=== PATIENT | male | born 1995 | race Caucasian/White ===

== ENCOUNTER 2018-01-30 10:37 | Emergency (ER) | payer OTHER ==
[2018-01-30] MEDS ORDERED: COLCHICINE 0.6 MG TABLET PO ONE (11:15)
--- NOTE | 2018-01-30 11:22 | ER Document Report ---
HPI - HPI Pain Level: 5 Notes: Patient is a 23-year-old male who presents with chief complaint of gout flareup. Patient reports this is been going on for approximately 5 days, states he was seen at the [facility] and placed on allopurinol. Patient reports that allopurinol typically does not work for his gout flareups. He states that this feels the same as his last flareup which was approximately 6 months ago. Patient denies any other symptoms. Past Medical History - General Information source: Patient - Social History Smoking Status: Never Smoker Smoking Education Provided: Yes Frequency of alcohol use: None Family History: Reviewed & Not Pertinent Musculoskeletal Medical History: Reports Hx Gout Surgical Hx: Negative - Immunizations Immunizations up to date: Yes Vertical Provider Document - CONSTITUTIONAL Notes: PHYSICAL EXAMINATION: GENERAL: Well-appearing, well-nourished and in no acute distress. HEAD: Atraumatic, normocephalic. EYES: Pupils equal round extraocular movements intact, conjunctiva are normal. ENT: Nares patent NECK: Normal range of motion LUNGS: No respiratory distress Musculoskeletal: Normal range of motion NEUROLOGICAL: Normal speech, normal gait. PSYCH: Normal mood, normal affect. SKIN: Erythema noted to great toe and dorsal side foot just superior to great toe. - INFECTION CONTROL TRAVEL OUTSIDE OF THE [place] IN LAST 30 DAYS: No Course - Re-evaluation Re-evalutation: History and physical is consistent with acute gout flareup. Patient would like to try colchicine. Patient will be given first dose here in prescription to be filled. Discharge - Discharge Clinical Impression: Gout attack Qualifiers: Gout site: unspecified site Gout etiology: unspecified cause Qualified Code(s) : M10.9 - Gout, unspecified Disposition: HOME, SELF-CARE Additional Instructions: Gout You have been diagnosed as having gout. Gout is a problem caused by an excess of uric acid, a natural chemical found in the body. The cause of this disease is unknown. Gout arthritis occurs when crystals of uric acid form in the joints. The big toe is the most common joint involved, but any joint can become affected. Persons with gout may also form uric acid kidney stones, resulting in flank pain and blood in the urine. Nodules of uric acid may form under the skin. The first step of treatment is to decrease the inflammation in the joint with antiinflammatory medication. Medication to lower the uric acid level in the blood may then be prescribed. This medication should be taken regularly, as any sudden change in dosage may provoke an attack of gout. Some foods, such as red meat, can provoke an attack in some gout sufferers. Call the doctor if new symptoms arise, or if you do not improve. Gout Diet Changing your diet can decrease the uric acid in your blood. High levels of uric acid cause gouty arthritis and uric acid kidney stones. If you have gout , you should avoid meats that are high in purine. Meat products to avoid include liver, kidneys, and brains. In general, poultry is better than red meats. Seafoods to avoid include anchovies, sardines, gonzalez, mackerel, and scallops. In addition to limiting purine-rich foods, people with gout should limit protein intake to 10-15% of total calories. Carbohydrate intake should be around 50% of total daily calories. Limit fat intake to 30% of total daily calories. Cholesterol intake should be less than 300 mg/day. Maintain or achieve a healthy body weight. Weight loss should be gradual. Rapid weight loss can actually increase uric acid levels temporarily. Alcohol, especially beer, should be avoided. Get plenty of fluids. This dilutes urinary uric acid, and helps prevent uric acid kidney stones. Drink eight to twelve cups of water daily. Take first dose of the colchicine approximately 1 hour after you leave the ER this morning. Then starting tomorrow morning take 1 tablet once a day. This should help prevent a gout flareup so long as you are also following the above diet. Follow-up with your primary care provider. Prescriptions: Colchicine [Colchicine 0.6 mg Tablet] 0.6 mg PO DAILY #30 tablet
== END 2018-01-30 11:34 | disposition home or self-care (01) ==
LOC: ER 10:37
DX: M10.9 Gout, unspecified (principal)
CPT/HCPCS: 99283